=== PATIENT | female | born 1995 | race Caucasian/White ===

== ENCOUNTER 2017-04-19 22:33 | Emergency (ER) | payer SELFPAY ==
[2017-04-19 23:29] VITALS: BP 115/62
== END 2017-04-20 03:10 | disposition left against medical advice (07) ==
LOC: ED 22:33
DX: Z20.2 Contact with and (suspected) exposure to infections with a predominantly sexual mode of transmission (principal); Z53.21 Procedure and treatment not carried out due to patient leaving prior to being seen by health care provider